=== PATIENT | male | born 1945 | race Caucasian/White ===

== ENCOUNTER 2018-10-10 23:51 | Observation (INO) ==
[2018-10-11 02:09] LABS: BASO# 0.04 X1000 (0.0-0.2); BASO% 0.4 % (0.0-0.8); EOS# 0.34 X1000 (0.0-0.7); EOS% 3.7 % (0.0-10.0); HEMATOCRIT 32.4 % (42.0-52.0); HEMOGLOBIN 10.6 g/dL (14.0-18.0); IMM GRAN# 0.04 X1000 (0.0-0.04); IMM GRAN% 0.4 % (0.0-0.5); LYMPH% 18.6 % (20.5-51.1); MCH 28.3 PG (27-31); MCHC 32.7 g/dL (33-37); MCV 86.6 FL (81-99); MONO# 0.82 X1000 (0.11-0.59); MPV 11.8 FL (7.4-10.4); NEUT# 6.19 X1000 (1.4-6.5); NEUT% 67.9 % (42.2-75.2); PLT 170 X1000 (130-400); RBC 3.74 XMIL (4.7-6.1); RDW 14.3 % (11.5-14.5); WBC 9.13 X1000 (4.8-10.8)
--- NOTE | 2018-10-11 03:09 | PROVIDER DOCUMENTATION ---
This chart was entered by Devan Wesley Scribe, acting as scribe for Luis Shannon MD. HPI-Male Problem - General Chief Complaint: Male Stated Complaint: PULLED CATHETER OUT, BLEEDING Time Seen by Provider: 10/11/18 00:23 Source: patient Allergies/Adverse Reactions: Patient Allergies Allergy/AdvReac Type Severity Reaction Status Date / Time No Known Allergies Allergy Verified 10/11/18 02:24 Home Medications: Home Medication List Medication Instructions Recorded Confirmed Last Taken Type Atorvastatin Calcium [Lipitor] 40 mg PO DAILY 08/11/14 02/07/18 03/08/17 06:00 History 40 MG Carvedilol [Coreg] 6.25 mg PO BID 08/11/14 02/07/18 03/08/17 06:00 History 6.25 MG Furosemide [Lasix] 40 mg PO DAILY 08/11/14 02/07/18 03/08/17 06:00 History 40 MG Glipizide [Glipizide ER] 10 mg PO DAILY 08/11/14 02/07/18 03/08/17 06:00 History 10 MG Omeprazole 40 mg PO DAILY 08/11/14 02/07/18 03/08/17 06:00 History 40 MG Terazosin [Hytrin] 5 mg PO DAILY 08/11/14 02/07/18 03/08/17 06:00 History 5 MG Venlafaxine [Effexor] 75 mg PO BID 08/11/14 02/07/18 03/08/17 06:00 History 75 MG Pramipexole [Mirapex] 1 mg PO QHS 10/05/14 02/07/18 03/08/17 06:00 History 0.5 MG Amitriptyline [Elavil] 25 mg PO HS 01/17/17 02/07/18 03/07/17 20:00 History 25 MG Allopurinol 300 mg PO HS 03/08/17 02/07/18 03/07/17 20:00 History 300 MG Gabapentin [Neurontin] 600 mg PO TID 03/08/17 02/07/18 03/08/17 06:00 History 600 MG Losartan Potassium [Cozaar] 100 mg PO DAILY 03/08/17 02/07/18 03/08/17 06:00 History 100 MG Nitroglycerin Sl [Nitroglycerin] 0.4 mg SL PRN PRN #1 tablet 03/08/17 02/07/18 Unknown Rx Hydrocodone/Acetaminophen [Mobile 1 ea PO Q6H PRN PRN #20 tab 10/14/17 02/07/18 Unknown Rx 7.5-325 Tablet] Isosorbide Mononitrate E.r. [Imdur] 30 mg PO DAILY #90 tab 10/14/17 02/07/18 Unknown Rx Ticagrelor [Brilinta] 90 mg PO BID #60 tab 10/14/17 02/07/18 Unknown Rx Aspirin [Lo-Dose Aspirin EC] 81 mg PO DAILY 02/07/18 02/07/18 Unknown History Loperamide [Imodium] 2 mg PO PRN PRN #10 cap 07/13/18 Unknown Rx Sulfamethoxazole/Trimethoprim 1 ea PO BID #14 tab 10/08/18 Unknown Rx [Bactrim Ds Tablet] - History of Present Illness-Male Nature of Presenting Problem: Pt is a 72 yom who presents to the ED with a CC of male injury. Pt states he was seen on Tuesday about UTI and was given a kim catheter. Pt states he was sent home with the catheter still inside and was told to follow up with his PCP to get it removed. Pt states he tried to get an appointment for two days but was unsuccessful. Pt states he pulled out his own catheter at approximately 2230 today. Upon examination, the pt has an uncircumcised penis with clots and blood coming from the distal urethra and no external tear can be seen. Location of Complaint: reports: urethral Radiation: reports: periumbilical Quality of Pain: reports: burning, sharp Severity in ED: reports: moderate Onset/Duration: reports: 1-3 hours ago Timing: reports: still present Urinary Symptoms: reports: dysuria, dribbling, hematuria Associated Symptoms: reports: cough. denies: back/neck pain, chest pain, constipation Similar Symptoms Previously?: Yes Recently seen or treated by another doctor?: Yes Review of Systems - Adult - REVIEW OF SYSTEMS - ADULT Constitutional: reports: see HPI. denies: chills, fever, fatique, night sweats Eyes: reports: no symptoms reported Ears, Nose, Mouth & Throat: reports: no symptoms reported Cardiovascular: reports: no symptoms reported Respiratory: reports: no symptoms reported Gastrointestinal: reports: no symptoms reported Genitourinary: reports: see HPI, dysuria, hematuria. denies: discharge, urinary retention, urgency Musculoskeletal: reports: no symptoms reported Integumentary: reports: no symptoms reported Neurological: reports: no symptoms reported Psychiatric: reports: no symptoms reported Endocrine: reports: no symptoms reported Hematologic/Lymphatic: reports: no symptoms reported Allergic/Immunologic: reports: no symptoms reported All Other Systems: Reviewed and Negative Past History - Adult - PAST MEDICAL HISTORY-ADULT Review of Records: reports: Old Records Reviewed, Nursing Assessment Review, Medications Reviewed, Social history reviewed & non-contributory. Major Childhood Illnesses: reports: denies history Cardiovascular: reports: CAD, CHF, HTN, hyperlipidemia, MT (x3), other (stent placement 11/2017) Respiratory: reports: sleep apnea Gastrointestinal: reports: GERD, other (abdominal aneursym) Obstetrical/Gynecological: reports: denies history Genitourinary: reports: denies history Musculoskeletal: reports: denies history Neurological: reports: denies history Psychiatric: reports: depression Endocrine/Immune: reports: Diabetes Other Conditions: reports: denies history - PRIOR SURGERIES/PROCEDURES Surgical/Procedure History: reports: appendectomy, cardiac stent (x3), orthopedi c (extremity), joint replacement (right knee), back/neck - IMMUNIZATION STATUS Childhood Immunizations: See Nurse Assessment Flu Vaccine: See Nurse Assessment - FAMILY HISTORY Family History: reviewed, not pertinent - SOCIAL HISTORY Smoking: quit greater than 1 year, cigarettes Substance Use: none/never, denies Alcohol Use Frequency: never Physical Exam-General - PHYSICAL EXAM-ADULT Initial Vital Signs Reviewed: Yes - CONSTITUTIONAL General Appearance: alert, moderate distress - EYES Eyes: PERRL/EOMI - NECK Neck: non-tender, full range of motion. negative: limited range of motion, lymphadenopathy, meningismus - RESPIRATORY Respiratory: chest non-tender, lungs clear, normal breath sounds, no pleuratic chest pain, no respiratory distress, no accessory muscle use. negative: respiratory distress, decreased breath sounds, accessory muscle use, crackles, stridor, wheezing - CARDIOVASCULAR Cardiovascular: normal peripheral pulses, regular rate, rhythm, no edema, no gallop, no JVD, no murmur. negative: JVD, bradycardia, tachycardia, systolic murmur, gallop/S4, extra beats - GASTROINTESTINAL (ABDOMEN) Abdominal Exam: non tender, soft. negative: distended, guarding, rigid, rebound, tenderness, hernia - GENITOURINARY Male Genitalia: erythema, uncircumcised, other (See HPI) - MUSCULOSKELETAL Extremity: normal range of motion, non-tender. negative: calf tenderness, deformity, erythema, inflammation, pedal edema, swelling, tenderness - SKIN Integumentary: normal color, normal turgor, warm/dry. negative: abrasion(s), blanching, ecchymosis, erythema, jaundice, laceration(s) - NEUROLOGIC Neurologic: grossly normal, no motor/sensory deficits. negative: abnormal gait, aphasia, EOM palsy, facial droop, focal weakness - PSYCHIATRIC Psych/Mental Status: normal mood/affect, normal thought content, normal thought process, oriented x 3. negative: disoriented x 3, anxious, disheveled, d epressed affect Progress - PLAN OF CARE/RESULTS Progress/Plan/Lab Results: Vital Signs - 8 hr 10/10/18 23:55 Temperature 97.6 F Pulse Rate 76 Respiratory Rate 19 Blood Pressure 159/72 O2 Sat by Pulse Oximetry 97 Laboratory Results - last 24 hr 10/11/18 10/11/18 01:50 01:50 WBC 9.13 RBC 3.74 L Hgb 10.6 L Hct 32.4 L MCV 86.6 MCH 28.3 MCHC 32.7 L RDW Std Deviation 14.3 Plt Count 170 MPV 11.8 H Immature Gran % (Auto) 0.4 Neut % (Auto) 67.9 Lymph % (Auto) 18.6 L [place] % (Auto) 9.0 Eos % (Auto) 3.7 Baso % (Auto) 0.4 Immature Gran # (Auto) 0.04 Neut # (Auto) 6.19 Lymph # (Auto) 1.70 [place] # (Auto) 0.82 H Eos # (Auto) 0.34 Baso # (Auto) 0.04 PT 14.0 INR 1.00 Orders Category Date Time Status Bladder Scan and Record Result ORDERED Care 10/11/18 00:33 Active Kim Cath Insertion ORDERED Care 10/11/18 02:59 Ordered CBC WITH DIFF [HEME] Stat Lab 10/11/18 01:50 Completed PROTIME WITH INR [COAG] Stat Lab 10/11/18 01:50 Completed Result Diagrams: 10/11/18 01:50 - CONSULTS/PCP/HOSPITALIST Notification #1 *Consult/PCP/Hospitalist*: [place] Time Discussed: 01:55 Reason/Comments: place kim Consult Disposition: Will see in ED Departure - Departure Date of Disposition Decision: 10/11/18 Time of Disposition Decision: 03:01 DIAGNOSIS: Penile bleeding Complication of indwelling urinary catheter Qualifiers: Device complication type: mechanical Mechanical complication type: displacement Indwelling urinary catheter type: indwelling urethral catheter Encounter type: initial encounter Qualified Code(s): T83.021A - Displacement of indwelling urethral catheter, initial encounter Disposition: HOME 01 Certified Medical Emergency: Emergent Condition: Good Additional Freetext Instructions: ED Follow Up Instructions: You have been treated by a care provider in the Emergency Department. These instructions are being provided to you so you can have an understanding of how to care for yourself upon discharge. Upon discharge from the Emergency Department, you are responsible for making arrangements for follow-up care by a physician of your choice. Take all prescribed medications as directed. Return to the Emergency Department immediately for any new or worsening symptoms. You may call the Physician Referral phone number at [phone] to obtain a list of Physicians who are taking new patients. Do Not pull out your catheter, no how much it hurts Referrals and Follow-Ups: Kam Valencia MD [Primary Care Provider] - Cristi Berry MD [ACTIVE STAFF PHYSICIAN] - Greg Beckham MD [ACTIVE STAFF PHYSICIAN] - Discharge Education: Indwelling Urinary Catheter Care, Adult - Critical Care Note This patient required my direct & personal management of CC.: No Attestation - Physician/ KELLY Attestation Patient care was provided by Advanced Practice Provider:: No The physician spent face to face time with patient:: Yes Advanced Practice Provider documentation review:: Supervising physician onsite and consulted in the evaluation and care of this patient. The physician did have a face to face encounter with the patient. This chart was documented by the indicated scribe, (Devan Wesley, Scribe) and accurately reflects the services I performed and decisions made by me, Luis Shannon MD, as attested by the provider's signature.
--- NOTE | 2018-10-11 05:41 | HISTORY AND PHYSICAL ---
PRIMARY CARE PHYSICIAN: Dr. Valencia. CHIEF COMPLAINT: Urinary retention, pulled out Kim, gross hematuria. HISTORY OF PRESENTING ILLNESS: A 72-year-old male with a history of diabetes mellitus type 2, hypertension, hyperlipidemia, and coronary disease, who apparently had a Kim placed several days ago. Patient states that he went home, he was having discomfort and pain from the kim and subsequently he pulled it out with the balloon intact. He developed gross hematuria and pain, and subsequently had come to the emergency department. In the ED, he was evaluated and the ER physician was unable to replace the Kim catheter. His case was discussed with urologist, who recommended the patient be admitted for further management. At the time of my examination, patient denied any headache, fever, chills, chest pain, shortness of breath, or any weight changes. Still complained of some pelvic pain. PAST MEDICAL HISTORY: Include diabetes mellitus type 2, hypertension, hyperlipidemia, coronary artery disease. PAST SURGICAL HISTORY: Coronary stent, cholecystectomy, cataract surgery, back surgery. ALLERGIES: No known drug allergies. CURRENT MEDICATIONS: Allopurinol 300 mg p.o. at bedtime level 25 mg p.o. at bedtime, aspirin 81 mg p.o. daily, atorvastatin 40 mg p.o. daily, carvedilol 6.25 mg p.o. b.i.d., Lasix 40 mg p.o. daily, gabapentin 600 mg p.o. t.i.d., glipizide 10 mg p.o. daily, [place] 7.5 mg, 1 p.o. q.6 hours, isosorbide mononitrate 30 mg p.o. daily, nitroglycerin 0.4 mg sublingual p.r.n., omeprazole 40 mg p.o. daily, Mirapex 1 mg p.o. at bedtime, Hytrin 5 mg p.o. daily, Brilinta 90 mg p.o. b.i.d., Effexor 75 mg p.o. b.i.d. SOCIAL HISTORY: No history of smoking, alcohol, or illicit drug use. FAMILY HISTORY: No history of coronary disease. REVIEW OF SYSTEMS: Fourteen-point review of systems is as in HPI. Other systems negative. PHYSICAL EXAMINATION: GENERAL: Cooperative, friendly male, he is resting more comfortably now. VITAL SIGNS: Temperature 97.6 degrees, pulse 76, respiration 19, blood pressure 159/72. HEENT: Atraumatic, normocephalic. Extraocular movements intact. PERRLA. NECK: Supple. CHEST: Clear to auscultation. CARDIOVASCULAR: Regular rate and rhythm. ABDOMEN: Soft. Positive bowel sounds. EXTREMITIES: No edema. GENITOURINARY: Gross hematuria. NEUROLOGIC: He is alert, oriented x3. SKIN: Warm. LABORATORIES AND STUDIES: WBCs 9.13, hemoglobin 10.6, hematocrit 32.4, platelets 170,000. ASSESSMENT: A 72-year-old male with a history of diabetes mellitus type 2, hypertension, hyperlipidemia, coronary disease, who apparently had a Kim catheter placed several days ago; however, when patient went home he was having discomfort and subsequently he pulled it out with balloon intact. He developed gross hematuria and pain, and subsequently came to the emergency department. In the ED, the ER physician was unable to replace the Kim catheter. His case was discussed with a urologist, who recommended admission for further management. 1. Status post traumatic urinary Kim catheter removal. 2. Urinary retention. 3. Gross hematuria. 4. Diabetes mellitus type 2. 5. Hypertension. PLAN: 1. We will admit patient for observation. 2. We will consult Urology to replace the Kim catheter. 3. We will monitor blood glucose and put patient on sliding scale insulin regimen. 4. We will monitor blood pressure. Resume antihypertensive agents. 5. Put patient on DVT prophylaxis, SCD. 6. We will continue to follow and reassess, and make further recommendation based on patient's clinical course. cc: Nolberto Pisano MD MTDD
--- NOTE | 2018-10-11 07:26 | CONSULTATION ---
DATE OF CONSULTATION: 10/11/2018 CHIEF COMPLAINT: Urinary retention and gross hematuria. HISTORY OF PRESENT ILLNESS: Mr. Peck is a 72-year-old with type 2 diabetes, hypertension, hyperlipidemia, coronary artery disease, BPH, and angiomyolipoma who presented to the emergency room on Tuesday due to difficulty with urination and had a urethral catheter put in due to possible urinary tract infection. The patient describes having bladder spasms and discomfort in his bladder so he subsequently removed his catheter yesterday night with the balloon inflated. This caused him a significant amount discomfort and pain as well as bleeding from his urethra afterwards. The patient presented to the emergency room due to pain and blood in his urine. The patient states he has voided several times since he removed his catheter. However, he is not sure if he is emptying his bladder to completion. Multiple attempts were made by the nursing staff and ER physician regarding placement of catheter with both regular and coude catheters and unable to place. The patient is resting comfortably on evaluation and denies significant pain. The patient has voided several times with reddish urine. The patient is currently on Plavix, Brilinta and aspirin. PAST MEDICAL HISTORY: 1. Type 2 diabetes. 2. Hypertension. 3. Hyperlipidemia. 4. Coronary artery disease. 5. Angiomyolipoma. PAST SURGICAL HISTORY: 1. Coronary artery stent. 2. Cholecystectomy. 3. Cataract surgery. 4. Back surgery. ALLERGIES: No known drug allergies. MEDICATIONS: 1. Allopurinol 300 mg p.o. 2. Aspirin 81 mg p.o. daily. 3. Atorvastatin 40 mg p.o. daily. 4. Carvedilol 6.25 mg b.i.d. 5. Lasix 40 mg p.o. 6. Gabapentin 600 mg t.i.d. 7. Glipizide 10 mg p.o. daily. 8. [place] 7.5/325 mg q.6 hours as needed. 9. Isosorbide mononitrate 30 mg p.o. daily. 10. Nitroglycerin 0.4 mg p.r.n. 11. Omeprazole 40 mg p.o. daily. 12. Mirapex 1 mg p.o. at bedtime. 13. Hytrin 5 mg p.o. daily. 14. Brilinta 90 mg b.i.d. 15. Effexor 75 mg b.i.d.. SOCIAL HISTORY: Denies tobacco, alcohol, or illicit drug use. FAMILY HISTORY: Denies family history of malignancy. REVIEW OF SYSTEMS: Twelve-point review of systems performed, all pertinent positives and negatives in HPI. PHYSICAL EXAMINATION: Vital Signs: Temperature 98.3 degrees, heart rate 86, blood pressure 140/84, oxygen saturation 99% on room air. General: No acute distress. Resting comfortably in bed. Alert and oriented x3. HEENT: Normocephalic, atraumatic. Pupils equal, round, reactive to light. Mucous membranes moist. Neck: Trachea midline with no palpable deformities. Chest: Good respiratory effort without audible wheezing or rales. Cardiovascular: Regular rate and rhythm. Abdomen: Soft, nontender, nondistended. No palpable masses or hepatosplenomegaly. Genitourinary: Uncircumcised phallus. Bilateral testicles palpated without masses or nodularity. Small amount of fluid present in both hemiscrotum. It is nontender to palpation. There is blood present at the urethral meatus as well as in the groin area skin. Extremities: Moving all extremities without any obvious deformity. Evidence of prior knee replacement. Neurologic: Grossly motor and sensory intact. LABORATORY DATA: White blood cell count 9.1, hemoglobin 10.6, hematocrit 32.4, platelets 171,000. INR 1, PT 14. ASSESSMENT AND PLAN: Mr. Peck is a 72-year-old with history of type 2 diabetes, hypertension, hyperlipidemia, coronary artery disease, angiomyolipoma, BPH, who had an indwelling catheter inserted on Tuesday and subsequently removed it traumatically at home due to pelvic pain. The patient developed hematuria as well as burning within his urethra and presented to the emergency room for evaluation. Multiple attempts were performed for placement of catheter both by the nursing staff as well as the ER physician. Urology was consulted for further recommendations. Recommended admission to the hospitalist and possible consideration for surgical intervention and catheter placement. I evaluated the patient this morning. The patient had been voiding with reddish urine, but continued to have blood per urethra. The patient on multiple blood thinners including Brilinta, Plavix and aspirin. Due to these findings, I recommended attempted placement of catheter at bedside. Discussed the risks, benefits and alternatives to this. Was able to obtain a 20-Georgian coude catheter and attempted to place this, met some resistance in the proximal urethra. Ultimately, I obtained a ZIPwire which passed easily into the bladder and coiled there. Using a 20-Georg[place] coude catheter, was able to use an 18-gauge needle through the catheter that allowed easy passage over the wire into the bladder with return of over 800 mL of clear yellow urine. Several small clots were seen, but the catheter drained well. This was placed to gravity drainage and inflated with 10 mL of sterile water. Would observe the patient this morning. I do not think the patient needs to go to the operating room at this time. Would allow optimization by the Hospitalist service. If patient does well and his hematuria does not return with indwelling catheter in place, likely can be discharged later today. Will notify Dr. Berry of the patient being admitted to the hospital. Likely should keep indwelling catheter until next week and can perform a voiding trial at that time. Please call with questions or concerns. cc: Greg Beckham MD MTDRadha
[2018-10-11 11:24] LABS: URINE SOURCE CATH
[2018-10-11 11:47] LABS: BILIRUBIN URINE NEGATIVE (NEGATIVE); BLOOD URINE MODERATE (NEGATIVE); COLOR ORANGE; GLUCOSE URINE NEGATIVE (NEGATIVE); KETONE URINE NEGATIVE (NEGATIVE); LEUKOCYTES URINE SMALL (NEGATIVE); NITRITE URINE NEGATIVE (NEGATIVE); PH URINE 7.5; PROTEIN URINE TRACE mg/dL (NEGATIVE); SP GRAVITY URINE 1.011; TURBIDITY URINE HAZY (CLEAR); UROBILINOGEN URINE NORMAL (NORMAL)
[2018-10-11 11:48] LABS: UR EPITHELIAL CELLS <10 /HPF (<10); URINE BACTERIA NEGATIVE /HPF; URINE RBC TNTC /HPF (<10)
[2018-10-11] MEDS ORDERED: NORCO-7.5 PO PRN (16:43)
--- NOTE | 2018-10-11 17:11 | PROGRESS NOTE ---
DATE: 10/11/2018 INTERVAL HISTORY: Mr. Peck was admitted overnight for hematuria, and apparently the patient had come to emergency room 3 days prior to current admission for dribbling the urine and was diagnosed with urinary tract infection. At that time, he was found to have urinary retention and Sanchez catheter was placed and he was advised to follow up with Urology as an outpatient within a week. He was also discharged from the emergency room on antibiotics. He has been taking his antibiotics, but his Sanchez catheter was causing a lot of discomfort and pelvic pain, and he was not able to get hold of urology office so he decided to pull his Sanchez catheter out by himself on Tuesday, which caused hematuria and prompted an on the ER visit. Urology team has put in a coude catheter. SUBJECTIVE: Patient denies any new complaints. He wants me to start his home medications, which I did. The patient's is at bedside. OBJECTIVE: Temperature 98.4 degrees, pulse 58, respiratory rate 20, blood pressure 150/79, saturating 95% on room air. On physical examination, morbidly obese, not in any acute distress. Oral cavity is moist. Air entry bilaterally equal. No wheeze, rhonchi, crackles. S1, S2 normal. No murmur, rub, gallop. Abdomen is obese, soft, nontender. No lower extremity edema. On genitourinary examination, he does have a coude catheter, and there is bleeding from around the catheter with stains on the medial aspect of thigh and groin region. The urine catheter bag has been just emptied. The new bag also has some blood in it. Intake and output: 1.2 L urine so far. LABORATORIES: His hemoglobin is 10.6, and a repeat CBC will be ordered tomorrow. ASSESSMENT AND PLAN: 1. History of benign prostatic hypertrophy and urine retention requiring Sanchez during ER visit 3 days ago. Now traumatic Sanchez catheter removal by patient himself at home and subsequent hematuria. A new coude urine catheter has been put by Urology. However, on my evaluation, he still has some bleeding in the urine catheter bag which has just been drained and there is bleeding around the catheter site involving genitalia and medial thigh. I will appreciate Urology for further recommendation if he continues to have bleeding like this. 2. Recent diagnosis of Klebsiella oxytoca urinary tract infection at ER visit. I will start him on levofloxacin. 3. History of coronary artery disease with percutaneous coronary intervention in July 2014 and the latest percutaneous coronary intervention in November 2017. He is still within 12 months of dual anti-platelet window. I will continue him on his home aspirin and Plavix. I will also resume his home beta maura, statin, losartan. 4. History of [id number] diabetes mellitus and peripheral neuropathy. I will continue him on his home glipizide, sliding scale insulin, gabapentin, and keep him on diabetic diet. DISPOSITION: I am awaiting further Urology recommendations. If his bleeding does not recur at nighttime despite taking aspirin Plavix and if Urology is okay, my plan is to discharge him home tomorrow. Plan of care discussed with the patient and his at bedside. All of their questions have been answered. cc: Luis Fernando Hernandez MD MTDD
[2018-10-11] MEDS: ASPIRIN PO SCH (17:40)
[2018-10-11] MEDS: PLAVIX PO SCH (17:40)
[2018-10-11] MEDS: NEURONTIN PO SCH (17:40)
[2018-10-11] MEDS: COREG PO SCH (17:41)
[2018-10-11] MEDS: LEVAQUIN PO SCH (17:41)
[2018-10-11 18:19] LABS: CALCIUM 8.4 mg/dL (8.8-10.2); CREATININE 1.2 mg/dL (0.7-1.2); POTASSIUM 3.6 mmol/L (3.5-5.1)
[2018-10-11] MEDS ORDERED: BRILINTA PO SCH (21:00)
[2018-10-11] MEDS: ZYLOPRIM PO SCH (22:03)
[2018-10-11] MEDS: LIPITOR PO SCH (22:03)
[2018-10-11] MEDS: HYTRIN PO SCH (22:03)
[2018-10-11] MEDS: HUMALOG SUBQ SCH (22:12)
[2018-10-12] MEDS: HUMALOG SUBQ SCH ×3 (07:10→21:38)
[2018-10-12 07:11] LABS: BASO# 0.04 X1000 (0.0-0.2); BASO% 0.6 % (0.0-0.8); EOS# 0.34 X1000 (0.0-0.7); EOS% 4.8 % (0.0-10.0); HEMATOCRIT 35.3 % (42.0-52.0); HEMOGLOBIN 11.4 g/dL (14.0-18.0); IMM GRAN# 0.02 X1000 (0.0-0.04); IMM GRAN% 0.3 % (0.0-0.5); LYMPH# 1.82 X1000 (1.2-3.4); LYMPH% 25.7 % (20.5-51.1); MCH 28.1 PG (27-31); MCHC 32.3 g/dL (33-37); MCV 87.2 FL (81-99); MONO# 0.61 X1000 (0.11-0.59); MONO% 8.6 % (1.7-9.3); MPV 11.5 FL (7.4-10.4); NEUT# 4.26 X1000 (1.4-6.5); PLT 189 X1000 (130-400); RBC 4.05 XMIL (4.7-6.1); RDW 14.2 % (11.5-14.5); WBC 7.09 X1000 (4.8-10.8)
[2018-10-12 07:29] LABS: AGAP 9; BUN 17 mg/dL (8-22); CALCIUM 8.9 mg/dL (8.8-10.2); CHLORIDE 113 mmol/L (98-107); COSMO 291; CREATININE 1.1 mg/dL (0.7-1.2); ESTIMATED GFR > 60; GLUCOSE 82 mg/dL (70-104); SODIUM 146 mmol/L (136-145); TCO2 24 mmol/L (25-35)
[2018-10-12] MEDS: PRILOSEC PO SCH (09:15)
[2018-10-12] MEDS: GLUCOTROL XL PO SCH (09:15)
[2018-10-12] MEDS: PLAVIX PO SCH (09:15)
[2018-10-12] MEDS: IMDUR PO SCH (09:16)
[2018-10-12] MEDS: COREG PO SCH ×2 (09:16→21:37)
[2018-10-12] MEDS: NEURONTIN PO SCH ×2 (09:16→13:06)
[2018-10-12] MEDS: LEVAQUIN PO SCH (09:16)
[2018-10-12] MEDS: ASPIRIN PO SCH (09:16)
[2018-10-12] MEDS: COZAAR PO SCH (09:16)
[2018-10-12] MEDS: HYTRIN PO SCH (21:37)
[2018-10-12] MEDS: ZYLOPRIM PO SCH (21:37)
[2018-10-12] MEDS: LIPITOR PO SCH (21:37)
--- NOTE | 2018-10-13 05:14 | DISCHARGE SUMMARY ---
ADMISSION DATE: 10/11/2018 DISCHARGE DATE: 10/12/2018 CONSULTATIONS: Dr. Beckham with Urology. PERTINENT PROCEDURES: Coude Sanchez catheter placement. HISTORY OF PRESENT ILLNESS: Mr. Peck is a 72-year-old male, type 2 diabetes, hypertension, hyperlipidemia, coronary artery disease, BPH and angiomyolipoma, who presented to the ED room on Tuesday night with difficulty with urination. Had a urethral catheter placed secondary to urinary tract infection. He was having bladder spasms and discomfort in his bladder, so he subsequently traumatically removed the catheter with the balloon still inflated. This caused him significant amount of discomfort and pain as well as bleeding from his urethra afterwards. He presented to the ED with pain and blood in his urine. The patient had been able to void several times since he had removed his catheter. However, it was unclear if he was able to empty his bladder. Multiple attempts were made by the nursing staff and the ED physician regarding placement of a catheter with both regular and coude catheters and they were unable to place. Dr. Beckhma was called in and he recommended attempted placement of a catheter at the bedside. He was able to get in a 20- [place] coude catheter. He has done well since his catheter has been placed. He will follow up with Dr. Berry next Tuesday and he is being discharged again with the catheter in place. VITAL SIGNS: At time of discharge, temperature is 98.1 degrees, heart rate 67, respirations 18, blood pressure 161/78, O2 is 94% on room air. DISCHARGE DIET: Healthy heart. DISCHARGE MEDICATIONS: 1. Hytrin 5 mg p.o. at bedtime. 2. Lipitor 40 mg p.o. at bedtime. 3. Mirapex 1 mg p.o. at bedtime. 4. Allopurinol 300 mg p.o. at bedtime. 5. Coreg 6.25 mg p.o. b.i.d. 6. Cozaar 100 mg p.o. daily. 7. Effexor 75 mg p.o. b.i.d. 8. Glipizide ER 10 mg p.o. daily. 9. Klor-Con 10 of 10 mEq p.o. b.i.d. 10. Aspirin 81 mg p.o. daily. 11. Neurontin 600 mg p.o. t.i.d. 12. Prilosec 40 mg p.o. daily. 13. Brilinta 90 mg p.o. b.i.d. 14. Imdur 30 mg p.o. daily. 15. Imodium 2 mg p.o. p.r.n. 16. Levaquin 500 mg p.o. daily for 10 days. 17. Nitroglycerin sublingual 0.4 mg sublingual p.r.n. chest pain. 18. [place] 7.5 one each p.o. q.6 hours p.r.n. FOLLOWUP: Mr. Peck is being discharged back home with his catheter in place. He has been educated not to pull it out himself, to come to the ER. He is to follow up with Dr. Berry next Tuesday. He can return to the ED or call 911 for any worsening of symptoms. Dictated by DAYDAY Garcia for Ramiro Gastelum MD cc: MD Cristi Nunez MD David Francis, MD
--- NOTE | 2018-10-13 07:15 | PROGRESS NOTE ---
DATE: 10/12/2018 SUBJECTIVE: Mr. Peck reports no events overnight. He reports his catheter is draining well. He states he had some bloody discharge around the catheter but denies pulsatile bleeding. OBJECTIVE: Vital Signs: Temperature 98.3 degrees, pulse 65, blood pressure 177/78. General: No acute distress. Abdomen: Nontender, nondistended. Genitourinary: Sanchez catheter in place draining straw-colored urine with a small amount of red sediment at the bottom of the bag. There is dried up blood around his groin and right upper thigh area. There was no evidence of active bleeding around the catheter at the meatus. LABORATORY DATA: His white cell count 7000, hematocrit is 35, creatinine is 1.1. His urine culture showed no growth preliminary. ASSESSMENT AND PLAN: A 72-year-old male who developed urinary retention and sustained urethral injury after pulling out the catheter himself with the balloon inflated. He has had some hematuria as well as bleeding around the catheter from the meatus. Right now the bleeding seems to have subsided. I have discussed with the patient that unless there is pulsatile bleeding, there is no need for urgent urologic intervention with cystoscopy fulguration as it could create more scar tissue down the road. I have discussed with him that pulling out the Sanchez catheter with the balloon could very well give him urethral stricture in the future. We discussed that he should keep his Sanchez catheter until 10/18/2018, at which point he will have it removed and we will assess his postvoid residual. PLAN: 1. No urologic intervention needed at this point. 2. Home with catheter. 3. We will plan on seeing him on 10/18/2017 for Sanchez catheter removal with voiding trial. cc: Cristi Berry MD
[2018-10-13] MEDS: LEVAQUIN PO SCH (08:18)
[2018-10-13] MEDS: COREG PO SCH (08:18)
[2018-10-13] MEDS: ASPIRIN PO SCH (08:18)
[2018-10-13] MEDS: PRILOSEC PO SCH (08:18)
[2018-10-13] MEDS: NEURONTIN PO SCH (08:18)
[2018-10-13] MEDS: PLAVIX PO SCH (08:18)
[2018-10-13] MEDS: GLUCOTROL XL PO SCH (08:19)
[2018-10-13] MEDS: IMDUR PO SCH (08:19)
[2018-10-13] MEDS: COZAAR PO SCH (08:19)
[2018-10-13] MEDS: HUMALOG SUBQ SCH ×2 (11:20→12:06)
[2018-10-13 11:52] LABS: AGAP 9; BUN 17 mg/dL (8-22); CALCIUM 8.7 mg/dL (8.8-10.2); CHLORIDE 112 mmol/L (98-107); COSMO 294; CREATININE 1.1 mg/dL (0.7-1.2); ESTIMATED GFR > 60; GLUCOSE 229 mg/dL (70-104); POTASSIUM 4.1 mmol/L (3.5-5.1); SODIUM 143 mmol/L (136-145); TCO2 22 mmol/L (25-35)
[2018-10-13 13:16] VITALS: BP 120/67
--- NOTE | 2018-10-13 18:19 | PROGRESS NOTE ---
DATE: 10/13/2018 SUBJECTIVE: This patient is lying comfortably in bed. Today, he is completely alert and oriented x3. Yesterday he was about to be discharged, but he started to be really somnolent and very difficult to arouse. His is at the bedside today, and I discussed the case with her and the patient. It looks like this has been happening before, and they have been telling that to his primary care doctor. It looks like it could be related to his medications because as per the , he takes his medication in the morning and then he has been having these kind of problems so I told him to go to his primary care doctor as soon as they can to readjust medications. OBJECTIVE: Vital Signs: Temperature 98.3 degrees, pulse 62, respiratory rate 16, blood pressure 120/67, oxygen saturation 99 on room air. HEENT: Head normocephalic. No trauma PERRLA. Neck: Supple. No JVD. No masses. Central trachea. Chest: Clear to auscultation. No wheezing. No rales. Abdomen: Soft, nontender, nondistended. No hepatosplenomegaly. Extremities: No edema, no clubbing, no cyanosis. He does have a Sanchez catheter that is working fine. No signs of hematuria. Neurological Examination: The patient is alert. He is oriented x3. No focal deficits. LABORATORY: Sodium 143, potassium 4.1, chloride 112, bicarbonate 22, BUN 17, creatinine 1.1, glucose 229, calcium 8.7. DISCHARGE DIAGNOSES: 1. The patient was admitted due to traumatic urinary Sanchez catheter removal. It has been replaced. 2. Urinary retention. 3. Gross hematuria. 4. Type 2 diabetes. 5. Hypertension. Please see formal discharge summary done yesterday, follow up with Dr. Berry this coming Tuesday. cc: Ramiro Gastelum MD
== END 2018-10-13 13:28 | disposition home or self-care (01) ==
LOC: 4N 23:51 → ED 23:51 → SUATTDRO 10-11 06:20
PROVIDERS: ATTEND Internal Medicine
CPT/HCPCS: 51702; 80048; 81001; 82948; 85025; 85610; 87088; 99284; A9270; J1815; XXXXX